=== PATIENT | female | born 1990 | race Caucasian/White ===

== ENCOUNTER 2018-02-05 08:35 | Emergency (ER) | payer OTHER ==
[2018-02-05] MEDS ORDERED: Sodium Chloride 0.9% 1,000 ML IV ONE (08:44)
[2018-02-05] MEDS ORDERED: Ondansetron 4 MG/2 ML SDV IVPUSH ONE (08:44)
--- NOTE | 2018-02-05 08:44 | EDM.PDOC ---
ED HPI GENERAL MEDICAL PROBLEM - General Chief Complaint: Gastrointestinal Problem Stated Complaint: DIARRHEA, VOMITING (19 WKS) Time Seen by Provider: 02/05/18 08:44 Source of Information: Reports: Patient - History of Present Illness INITIAL COMMENTS - FREE TEXT/NARRATIVE: HISTORY AND PHYSICAL: History of present illness: [Patient presents with nausea and vomiting over the last several days last episode of vomiting 7 AM today she is 19-2/7 weeks by dates and followed by OB a [facility]. Recommended she come in for evaluation patient is much improved after 1 L normal saline bolus and Zofran No current fever nausea vomiting diarrhea constipation chest pain shortness breath headache dizziness or palpitation no bowel or urine symptoms No low back pain vaginal bleeding discharge or fluid leakage no cramping ] Review of systems: As per history of present illness and below otherwise all systems reviewed and negative. Past medical history: As per history of present illness and as reviewed below otherwise noncontributory. Surgical history: As per history of present illness and as reviewed below otherwise noncontributory. Social history: No reported history of drug or alcohol abuse. Family history: As per history of present illness and as reviewed below otherwise noncontributory. Physical exam: HEENT: Atraumatic, normocephalic, pupils reactive, negative for conjunctival pallor or scleral icterus, mucous membranes moist, throat clear, neck supple, nontender, trachea midline. Lungs: Clear to auscultation, breath sounds equal bilaterally, chest nontender. Heart: S1S2, regular, negative for clicks, rubs, or JVD. Abdomen: Soft, nondistended, nontender. Negative for masses or hepatosplenomegaly. Negative for costovertebral tenderness. System with dates Pelvis: Stable nontender. Genitourinary: Deferred. Rectal: Deferred. Extremities: Atraumatic, negative for cords or calf pain. Neurovascular unremarkable. Neuro: Awake, alert, oriented. Cranial nerves II through XII unremarkable. Cerebellum unremarkable. Motor and sensory unremarkable throughout. Exam nonfocal. Diagnostics: [CBC CMP UA ] Therapeutics: [Normal saline 1 L Zofran 8 mg IV ]Zofran No. 30 no refill Impression: Nausea in [-improved to resolved 19 weeks 2/7 EDC by dates 09/28/18 heart tones 147 A positive ] Definitive disposition and diagnosis as appropriate pending reevaluation and review of above. - Related Data Allergies Allergy/AdvReac Type Severity Reaction Status Date / Time No Known Allergies Allergy Verified 02/05/18 08:49 Home Meds: Home Meds . [No Known Home Meds] 02/05/18 [History] Past Medical History - Past Health History Medical/Surgical History: Denies Medical/Surgical History Cardiovascular History: Reports: Stents [employer] ST[employer]ER History: Reports: Hematologic History: Reports: None (denies any personal or family history of bleeding or clotting problems) - Past Surgical History HEENT Surgical History: Reports: None Cardiovascular Surgical History: Reports: None Social & Family History - Family History Cardiac: Reports: Hypertension, Stent Endocrine/Metabolic: Reports: Diabetes, type II Oncologic: Reports: Pancreatic, Prostate - Tobacco Use Smoking Status *Q: Never Smoker - Caffeine Use Caffeine Use: Reports: Coffee - Alcohol Use Days Per Week of Alcohol Use: 0 Number of Drinks Per Day: 1 Total Drinks Per Week: 0 - Recreational Drug Use Recreational Drug Use: No ED ROS GENERAL - Review of Systems Review Of Systems: See Below ED EXAM, GENERAL - Physical Exam Exam: See Below Course - Vital Signs Last Recorded V/S: Last Vital Signs Temp 97.3 F 02/05/18 09:51 Pulse 85 02/05/18 09:51 Resp 20 02/05/18 09:51 BP 133/72 02/05/18 09:51 Pulse Ox 100 02/05/18 09:51 - Orders/Labs/Meds Orders: Active Orders 24 hr Category Date Time Status UA W/MICROSCOPIC [URIN] Stat Lab 02/05/18 09:40 Ordered Labs: Laboratory Tests 02/05/18 02/05/18 02/05/18 Range/Units 08:50 08:50 09:40 WBC 11.67 H (4.0-11.0) K/uL RBC 4.64 (4.30-5.90) M/uL Hgb 13.4 (12.0-16.0) g/dL Hct 39.0 (36.0-46.0) % MCV 84.1 (80.0-98.0) fL MCH 28.9 (27.0-32.0) pg MCHC 34.4 (31.0-37.0) g/dL RDW Std Deviation 40.6 (28.0-62.0) fl RDW Coeff of Manisha 14 (11.0-15.0) % Plt Count 220 (150-400) K/uL MPV 10.70 (7.40-12.00) fL Neut % (Auto) 82.9 H (48.0-80.0) % Lymph % (Auto) 9.1 L (16.0-40.0) % [place] % (Auto) 7.5 (0.0-15.0) % Eos % (Auto) 0.4 (0.0-7.0) % Baso % (Auto) 0.1 (0.0-1.5) % Neut # (Auto) 9.7 H (1.4-5.7) K/uL Lymph # (Auto) 1.1 (0.6-2.4) K/uL Clayton # (Auto) 0.9 H (0.0-0.8) K/uL Eos # (Auto) 0.1 (0.0-0.7) K/uL Baso # (Auto) 0.0 (0.0-0.1) K/uL Nucleated RBC % 0.0 /100WBC Nucleated RBCs # 0 K/uL Sodium 137 (136-145) mmol/L Potassium 3.3 L (3.5-5.1) mmol/L Chloride 104 (98-107) mmol/L Carbon Dioxide 20.3 L (21.0-32.0) mmol/L BUN 7 (7.0-18.0) mg/dL Creatinine 0.7 (0.6-1.0) mg/dL Est Cr Clr Drug Dosing 125.04 mL/min Estimated GFR (MDRD) > 60.0 ml/min Glucose 122 H (74-106) mg/dL Calcium 8.8 (8.5-10.1) mg/dL Total Bilirubin 0.3 (0.2-1.0) mg/dL AST 13 L (15-37) IU/L ALT 13 L (14-63) IU/L Alkaline Phosphatase 61 (46-116) U/L Total Protein 7.4 (6.4-8.2) g/dL Albumin 3.3 L (3.4-5.0) g/dL Globulin 4.1 H (2.0-3.5) g/dL Albumin/Globulin Ratio 0.8 L (1.3-2.8) Urine Color YELLOW Urine Appearance CLEAR Urine pH 5.5 (5.0-8.0) Ur Specific [place] 1.025 (1.001-1.035) Urine Protein TRACE (NEGATIVE) mg/dL Urine Glucose (UA) NEGATIVE (NEGATIVE) mg/dL Urine Ketones TRACE H (NEGATIVE) mg/dL Urine Occult Blood NEGATIVE (NEGATIVE) Urine Nitrite NEGATIVE (NEGATIVE) Urine Bilirubin SMALL H (NEGATIVE) Urine Ictotest NEGATIVE Urine Urobilinogen 1.0 (<2.0) EU/dL Ur Leukocyte Esterase NEGATIVE (NEGATIVE) Urine RBC 0-1 (0-2/HPF) Urine WBC 1-3 (0-5/HPF) Ur Epithelial Cells FEW (NONE-FEW) Urine Bacteria FEW (NEGATIVE) Urine Mucus LIGHT (NONE-MOD) Meds: Medications Discontinued Medications Generic Name Dose Route Start Last Admin Trade Name Freq PRN Reason Stop Dose Admin Sodium Chloride 1,000 mls @ 999 mls/hr 02/05/18 08:44 02/05/18 09:01 Normal Saline IV 02/05/18 09:44 999 mls/hr STAT ONE Administration Ondansetron HCl 8 mg 02/05/18 08:44 02/05/18 09:01 Zofran IVPUSH 02/05/18 08:45 8 mg ONETIME ONE Administration Departure - Departure Time of Disposition: 10:33 Disposition: Home, Self-Care 01 Condition: Good Clinical Impression: Nausea/vomiting in - Discharge Information Referrals: PCP,None [Primary Care Provider] - Forms: ED Department Discharge Additional Instructions: The following information is given to patients seen in the emergency department who are being discharged to home. This information is to outline your options for follow-up care. We provide all patients seen in our emergency department with a follow-up referral. The need for follow-up, as well as the timing and circumstances, are variable depending upon the specifics of your emergency department visit. If you don't have a primary care physician on staff, we will provide you with a referral. We always advise you to contact your personal physician following an emergency department visit to inform them of the circumstance of the visit and for follow-up with them and/or the need for any referrals to a consulting specialist. The emergency department will also refer you to a specialist when appropriate. This referral assures that you have the opportunity for follow-up care with a specialist. All of these measure are taken in an effort to provide you with optimal care, which includes your follow-up. Under all circumstances we always encourage you to contact your private physician who remains a resource for coordinating your care. When calling for follow-up care, please make the office aware that this follow-up is from your recent emergency room visit. If for any reason you are refused follow-up, please contact the [facility] emergency department at and asked to speak to the emergency department charge nurse. - My Orders Last 24 Hours: My Active Orders 02/05/18 09:40 UA W/MICROSCOPIC [URIN] Stat - Assessment/Plan Last 24 Hours: My Active Orders 02/05/18 09:40 UA W/MICROSCOPIC [URIN] Stat
[2018-02-05 10:19] LABS: CHLORIDE,CL 104 mmol/L (98-107); SODIUM,NA 137 mmol/L (136-145)
[2018-02-05 10:53] VITALS: BP 125/63
== END 2018-02-05 10:47 | disposition home or self-care (01) ==
LOC: MW.ED 08:35
DX: O21.9 Vomiting of pregnancy, unspecified (principal); Z3A.19 19 weeks gestation of pregnancy
CPT/HCPCS: 36415; 80053; 81001; 85025; 96361; 96374; 99284; J2405; J7040

== ENCOUNTER 2018-06-24 11:53 | Inpatient (IN) | payer OTHER ==
[2018-06-24] MEDS ORDERED: Tranexamic Acid 1,000 MG in Sodium Chloride 0.9% 100 ML IV PRN (13:21)
[2018-06-24] MEDS ORDERED: Misoprostol 200 MCG Tab PO PRN (13:21)
[2018-06-24] MEDS ORDERED: Nalbuphine 10 MG/1 ML Vial IVPUSH PRN (13:21)
[2018-06-24] MEDS ORDERED: Lidocaine 1% 50 ML MDV INJECT PRN (13:21)
[2018-06-24] MEDS ORDERED: Methylergonovine 0.2 MG/1 ML Amp IM PRN (13:21)
[2018-06-24] MEDS ORDERED: Sodium Chloride 0.9% 2.5 ML Syringe FLUSH PRN (13:21)
[2018-06-24] MEDS ORDERED: Water For Irrigation,Sterile 1,000 ML Container IRR PRN (13:21)
[2018-06-24] MEDS ORDERED: Sodium Chloride 0.9% 10 ML Syringe FLUSH PRN (13:21)
[2018-06-24] MEDS ORDERED: Carboprost Tromethamine 250 MCG/1 ML Amp IM PRN (13:21)
[2018-06-24] MEDS ORDERED: Butorphanol 1 MG/ML SDV IVPUSH PRN (13:21)
[2018-06-24] MEDS ORDERED: Lactated Ringers 1,000 ML IV SCH (13:30)
[2018-06-24] MEDS ORDERED: Oxytocin/0.9 % Sodium Chloride 30 UNIT/500 ML BAG IV SCH (13:30)
--- NOTE | 2018-06-24 14:13 | PCM.PREANE ---
Preanesthetic Assessment - Anesthesia/Transfusion/Family Hx Anesthesia History: Prior Anesthesia Without Reaction Family History of Anesthesia Reaction: No Transfusion History: No Prior Transfusion(s) - Review of Systems General: No Symptoms Pulmonary: No Symptoms Cardiovascular: No Symptoms Gastrointestinal: No Symptoms Neurological: No Symptoms Other: Reports: None - Physical Assessment Height: 5 ft 9 in Weight: 106.141 kg ASA Class: 2 Mental Status: Alert & Oriented x3 Airway Class: Mallampati = 2 Dentition: Reports: Normal Dentition Thyro-Mental Finger Breadths: 3 Mouth Opening Finger Breadths: 3 ROM/Head Extension: Full Lungs: Clear to Auscultation, Normal Respiratory Effort Cardiovascular: Regular Rate, Regular Rhythm - Lab Values: Laboratory Last Values WBC 15.05 K/uL (4.0-11.0) H 06/24/18 13:38 RBC 4.43 M/uL (4.30-5.90) 06/24/18 13:38 Hgb 12.5 g/dL (12.0-16.0) 06/24/18 13:38 Hct 36.6 % (36.0-46.0) 06/24/18 13:38 MCV 82.6 fL (80.0-98.0) 06/24/18 13:38 MCH 28.2 pg (27.0-32.0) 06/24/18 13:38 MCHC 34.2 g/dL (31.0-37.0) 06/24/18 13:38 RDW Std Deviation 42.0 fl (28.0-62.0) 06/24/18 13:38 RDW Coeff of Manisha 14 % (11.0-15.0) 06/24/18 13:38 Plt Count 209 K/uL (150-400) 06/24/18 13:38 MPV 10.50 fL (7.40-12.00) 06/24/18 13:38 Nucleated RBC % 0.0 /100WBC 06/24/18 13:38 Nucleated RBCs # 0 K/uL 06/24/18 13:38 - Allergies Allergies/Adverse Reactions: Allergies Allergy/AdvReac Type Severity Reaction Status Date / Time No Known Allergies Allergy Verified 02/05/18 08:49 - Acknowledgements Anesthesia Type Planned: Epidural Pt an Appropriate Candidate for the Planned Anesthesia: Yes Alternatives and Risks of Anesthesia Discussed w Pt/Guardian: Yes Pt/Guardian Understands and Agrees with Anesthesia Plan: Yes PreAnesthesia Questionnaire - Past Health History Medical/Surgical History: Denies Medical/Surgical History HEENT History: Reports: None Cardiovascular History: Reports: Stents Respiratory History: Reports: None Gastrointestinal History: Reports: GERD Genitourinary History: Reports: None [employer]ER History: Reports: : 2 Para: 1 LMP (Approximate): Musculoskeletal History: Reports: None Neurological History: Reports: None Psychiatric History: Reports: None Endocrine/Metabolic History: Reports: Obesity/BMI 30+ Hematologic History: Reports: None (denies any personal or family history of bleeding or clotting problems) Immunologic History: Reports: None Oncologic (Cancer) History: Reports: None Dermatologic History: Reports: None - Infectious Disease History Infectious Disease History: Reports: None - Past Surgical History HEENT Surgical History: Reports: Other (See Below) ([place] teeth extraction) Cardiovascular Surgical History: Reports: None - HOME MEDS Home Medications: Home Meds . [No Known Home Meds] 02/05/18 [History] - CURRENT (IN HOUSE) MEDS Current Meds: Current Medications Butorphanol Tartrate (Stadol) 1 mg IVPUSH Q1H PRN PRN Reason: Pain Carboprost Tromethamine (Hemabate Ds) 250 mcg IM ASDIRECTED PRN PRN Reason: Post Hemorrhage Lactated Ringer's (Ringers, Lactated) 1,000 mls @ 150 mls/hr IV ASDIRECTED CARYL Oxytocin/Sodium Chloride (Oxytocin 30 Unit/500 Ml-Ns) 30 unit in 500 mls @ 500 mls/hr IV TITRATE CARYL Tranexamic Acid 1,000 mg/ (Sodium Chloride) 110 mls @ 660 mls/hr IV ONETIME PRN PRN Reason: Bleeding Lidocaine HCl (Xylocaine 1%) 50 ml INJECT ONETIME PRN PRN Reason: Laceration repair Methylergonovine Maleate (Methergine) 0.2 mg IM ASDIRECTED PRN PRN Reason: Post Hemorrhage Misoprostol (Cytotec) 200 mcg PO ONETIME PRN PRN Reason: Post Hemorrhage Nalbuphine HCl (Nubain) 10 mg IVPUSH Q1H PRN PRN Reason: Pain (severe 7-10) Sodium Chloride (Saline Flush) 10 ml FLUSH ASDIRECTED PRN PRN Reason: Keep Vein Open Sodium Chloride (Saline Flush) 2.5 ml FLUSH ASDIRECTED PRN PRN Reason: Keep Vein Open Sterile Water (Sterile Water For Irrigation) 1,000 ml IRR ASDIRECTED PRN PRN Reason: delivery
--- NOTE | 2018-06-24 19:57 | PCM.DEL ---
L & D Note - General Info Date of Service: 06/24/18 Mother's Due Date: 06/28/18 - Delivery Note Labor: Spontaneous Delivery Outcome: Livebirth Infant Delivery Method: Spontaneous Vaginal Delivery-Single Presentation: Right Occiput Anterior (PALMIRA) Nuchal Cord: None Anesthesia Type: Epidural Amniotic Fluid Description: Clear Laceration: None Placenta: Intact Estimated Blood Loss: 200 Resuscitation Needed: Yes Score 1 min: 9 Score 5 min: 9 Delivery Comments (Free Text/Narrative):: Live male 9/9 weight 3470g @ 717pm - General Info Date of Service: 06/24/18 - Patient Data Weight - Most Recent: 106.141 kg Lab Results Last 24 Hours: Laboratory Results - last 24 hr 06/24/18 06/24/18 Range/Units 13:38 13:38 WBC 15.05 H (4.0-11.0) K/uL RBC 4.43 (4.30-5.90) M/uL Hgb 12.5 (12.0-16.0) g/dL Hct 36.6 (36.0-46.0) % MCV 82.6 (80.0-98.0) fL MCH 28.2 (27.0-32.0) pg MCHC 34.2 (31.0-37.0) g/dL RDW Std Deviation 42.0 (28.0-62.0) fl RDW Coeff of Manisha 14 (11.0-15.0) % Plt Count 209 (150-400) K/uL MPV 10.50 (7.40-12.00) fL Nucleated RBC % 0.0 /100WBC Nucleated RBCs # 0 K/uL Blood Type A POSITIVE Antibody Screen NEGATIVE Med Orders - Current: Current Medications Butorphanol Tartrate (Stadol) 1 mg IVPUSH Q1H PRN PRN Reason: Pain Carboprost Tromethamine (Hemabate Ds) 250 mcg IM ASDIRECTED PRN PRN Reason: Post Hemorrhage Lactated Ringer's (Ringers, Lactated) 1,000 mls @ 150 mls/hr IV ASDIRECTED CARYL Oxytocin/Sodium Chloride (Oxytocin 30 Unit/500 Ml-Ns) 30 unit in 500 mls @ 500 mls/hr IV TITRATE CARYL Tranexamic Acid 1,000 mg/ (Sodium Chloride) 110 mls @ 660 mls/hr IV ONETIME PRN PRN Reason: Bleeding Lidocaine HCl (Xylocaine 1%) 50 ml INJECT ONETIME PRN PRN Reason: Laceration repair Methylergonovine Maleate (Methergine) 0.2 mg IM ASDIRECTED PRN PRN Reason: Post Hemorrhage Misoprostol (Cytotec) 200 mcg PO ONETIME PRN PRN Reason: Post Hemorrhage Nalbuphine HCl (Nubain) 10 mg IVPUSH Q1H PRN PRN Reason: Pain (severe 7-10) Sodium Chloride (Saline Flush) 10 ml FLUSH ASDIRECTED PRN PRN Reason: Keep Vein Open Sodium Chloride (Saline Flush) 2.5 ml FLUSH ASDIRECTED PRN PRN Reason: Keep Vein Open Sterile Water (Sterile Water For Irrigation) 1,000 ml IRR ASDIRECTED PRN PRN Reason: delivery Last Admin: 06/24/18 19:15 Dose: 1,000 ml Discontinued Medications Fentanyl/Bupivacaine HCl (Rkihtapb-Ladyr-Fw 2 Mcg/Ml-0.125%) Confirm Administered Dose 100 mls @ as directed EP .STK-MED ONE Stop: 06/24/18 14:06 - Problem List & Annotations (1) Vaginal delivery SNOMED Code(s): 907068240 Code(s): O80 - ENCOUNTER FOR FULL-TERM UNCOMPLICATED DELIVERY Status: Acute Current Visit: No - Problem List Review Problem List Initiated/Reviewed/Updated: Yes - My Orders Last 24 Hours: My Active Orders 06/24/18 13:21 Heart Tones [RC] CONTINUOUS Non Stress Test [RC] PER UNIT ROUTINE May Shower [RC] ASDIRECTED Notify Provider [RC] PRN Up ad Mala [RC] ASDIRECTED Vaginal Exam [RC] PRN Vital Signs [RC] PER UNIT ROUTINE Butorphanol [Stadol] 1 mg IVPUSH Q1H PRN Carboprost Tromethamine [Hemabate DS] 250 mcg IM ASDIRECTED PRN Lidocaine 1% [Xylocaine 1%] 50 ml INJECT ONETIME PRN Methylergonovine [Methergine] 0.2 mg IM ASDIRECTED PRN Nalbuphine [Nubain] 10 mg IVPUSH Q1H PRN Sodium Chloride 0.9% [Saline Flush] 10 ml FLUSH ASDIRECTED PRN Sodium Chloride 0.9% [Saline Flush] 2.5 ml FLUSH ASDIRECTED PRN Tranexamic Acid [Cyklokapron] 1,000 mg Sodium Chloride 0.9% [Normal Saline] 100 ml IV ONETIME Water For Irrigation,Sterile [Sterile Water for Irrigation] 1,000 ml IRR ASDIRECTED PRN miSOPROStol [Cytotec] 200 mcg PO ONETIME PRN Scalp Electrode [WOMSER] Per Unit Routine Peripheral IV Insertion Adult [OM.PC] Routine Resuscitation Status Routine 06/24/18 13:25 Admission Status [Patient Status] [ADT] Routine 06/24/18 13:30 Lactated Ringers [Ringers, Lactated] 1,000 ml IV ASDIRECTED Oxytocin/0.9 % Sodium Chloride [Oxytocin 30 Unit/500 ML-NS] 30 unit in 500 ml IV TITRATE
[2018-06-24] MEDS ORDERED: Docusate Sodium 100 MG Cap PO PRN (20:22)
[2018-06-24] MEDS ORDERED: oxyCODONE 5 MG Tab PO PRN (20:22)
[2018-06-24] MEDS ORDERED: Benzocaine/Menthol 20%-0.5% Spray 78 GM Cannister TOP PRN (20:22)
[2018-06-24] MEDS ORDERED: Acetaminophen 500 MG Tab PO PRN ×2 (20:22)
[2018-06-24] MEDS ORDERED: Bisacodyl 10 MG Supp RECTAL PRN (20:22)
[2018-06-24] MEDS ORDERED: Lanolin 100% Cream 7 GM Tube TOP PRN (20:22)
[2018-06-24] MEDS ORDERED: Ibuprofen 400 MG Tab PO PRN (20:22)
[2018-06-24] MEDS ORDERED: Witch Hazel Medicated Pads 40/Jar TOP PRN (20:22)
[2018-06-24] MEDS ORDERED: Benzocaine/Menthol 20%-0.5% Spray 78 GM Cannister ONE (20:26)
[2018-06-24] MEDS ORDERED: Witch Hazel Medicated Pads 40/Jar TOP ONE (20:26)
[2018-06-25] MEDS: Ibuprofen 800 MG Tab PO PRN ×3 (00:13→17:36)
--- NOTE | 2018-06-25 08:11 | PCM.PNPP ---
- General Info Date of Service: 06/25/18 Admission Dx/Problem (Free Text): 28yo P2 s/p PPD1 Subjective Update: patient seen at bedside , she denies any complains , she is ambulating , voiding , , Minimal lochia noted Functional Status: Reports: Pain Controlled, Tolerating Diet, Ambulating, Urinating - Review of Systems General: Reports: No Symptoms HEENT: Reports: No Symptoms Pulmonary: Reports: No Symptoms Cardiovascular: Reports: No Symptoms Gastrointestinal: Reports: No Symptoms Genitourinary: Reports: No Symptoms Musculoskeletal: Reports: No Symptoms Skin: Reports: No Symptoms Neurological: Reports: No Symptoms Psychiatric: Reports: No Symptoms - General Info Date of Service: 06/25/18 - Patient Data Vital Signs - Most Recent: Last Vital Signs Temp 36.7 C 06/25/18 04:00 Pulse 69 06/25/18 08:00 Resp 14 06/25/18 08:00 BP 112/68 06/25/18 08:00 Pulse Ox 98 06/25/18 08:00 Weight - Most Recent: 106.141 kg I&O - Last 24 Hours: Intake & Output 06/24/18 06/25/18 06/25/18 22:59 06:59 14:59 Intake Total 1000 Balance 1000 Lab Results - Last 24 Hours: Laboratory Results - last 24 hr 06/24/18 06/24/18 06/25/18 Range/Units 13:38 13:38 05:25 WBC 15.05 H (4.0-11.0) K/uL RBC 4.43 (4.30-5.90) M/uL Hgb 12.5 11.6 L (12.0-16.0) g/dL Hct 36.6 33.9 L (36.0-46.0) % MCV 82.6 (80.0-98.0) fL MCH 28.2 (27.0-32.0) pg MCHC 34.2 (31.0-37.0) g/dL RDW Std Deviation 42.0 (28.0-62.0) fl RDW Coeff of Manisha 14 (11.0-15.0) % Plt Count 209 (150-400) K/uL MPV 10.50 (7.40-12.00) fL Nucleated RBC % 0.0 /100WBC Nucleated RBCs # 0 K/uL Blood Type A POSITIVE Antibody Screen NEGATIVE Med Orders - Current: Current Medications Acetaminophen (Tylenol Extra Strength) 500 mg PO Q4H PRN PRN Reason: Pain Acetaminophen (Tylenol Extra Strength) 1,000 mg PO Q4H PRN PRN Reason: Pain Benzocaine/Menthol (Dermoplast Pain Relief 20%-0.5% [place]) 78 gm TOP ASDIRECTED PRN PRN Reason: Perineal Comfort Measure Last Admin: 06/24/18 20:41 Dose: 1 canister Bisacodyl (Dulcolax) 10 mg RECTAL ONETIME PRN PRN Reason: Constipation Butorphanol Tartrate (Stadol) 1 mg IVPUSH Q1H PRN PRN Reason: Pain Carboprost Tromethamine (Hemabate Ds) 250 mcg IM ASDIRECTED PRN PRN Reason: Post Hemorrhage Docusate Sodium (Colace) 100 mg PO BID PRN PRN Reason: Constipation Last Admin: 06/24/18 20:38 Dose: 100 mg Emollient Ointment (Lansinoh Hpa) 0 gm TOP ASDIRECTED PRN PRN Reason: Sore Nipples Lactated Ringer's (Ringers, Lactated) 1,000 mls @ 150 mls/hr IV ASDIRECTED CARYL Oxytocin/Sodium Chloride (Oxytocin 30 Unit/500 Ml-Ns) 30 unit in 500 mls @ 500 mls/hr IV TITRATE CARYL Last Admin: 06/24/18 19:18 Dose: 500 mls/hr Tranexamic Acid 1,000 mg/ (Sodium Chloride) 110 mls @ 660 mls/hr IV ONETIME PRN PRN Reason: Bleeding Ibuprofen (Motrin) 400 mg PO Q4H PRN PRN Reason: Pain Ibuprofen (Motrin) 800 mg PO Q6H PRN PRN Reason: Pain Last Admin: 06/25/18 00:13 Dose: 800 mg Lidocaine HCl (Xylocaine 1%) 50 ml INJECT ONETIME PRN PRN Reason: Laceration repair Methylergonovine Maleate (Methergine) 0.2 mg IM ASDIRECTED PRN PRN Reason: Post Hemorrhage Misoprostol (Cytotec) 200 mcg PO ONETIME PRN PRN Reason: Post Hemorrhage Nalbuphine HCl (Nubain) 10 mg IVPUSH Q1H PRN PRN Reason: Pain (severe 7-10) Oxycodone HCl (Oxycodone) 5 mg PO Q2H PRN PRN Reason: Pain Sodium Chloride (Saline Flush) 10 ml FLUSH ASDIRECTED PRN PRN Reason: Keep Vein Open Sodium Chloride (Saline Flush) 2.5 ml FLUSH ASDIRECTED PRN PRN Reason: Keep Vein Open Sterile Water (Sterile Water For Irrigation) 1,000 ml IRR ASDIRECTED PRN PRN Reason: delivery Last Admin: 06/24/18 19:15 Dose: 1,000 ml Witch Sherlyn (Tucks) 1 pad TOP ASDIRECTED PRN PRN Reason: comfort care Last Admin: 06/24/18 20:38 Dose: 1 tub Discontinued Medications Benzocaine/Menthol (Dermoplast Pain Relief 20%-0.5% [facility]) Confirm Administered Dose 78 gm .ROUTE .STK-MED ONE Stop: 06/24/18 20:27 Last Admin: 06/25/18 07:11 Dose: Not Given Fentanyl/Bupivacaine HCl (Ljximqcx-Iemzz-Lv 2 Mcg/Ml-0.125%) Confirm Administered Dose 100 mls @ as directed EP .STK-MED ONE Stop: 06/24/18 14:06 Last Admin: 06/25/18 07:11 Dose: Not Given Witch Sherlyn (Tucks) Confirm Administered Dose 1 pad TOP .STK-MED ONE Stop: 06/24/18 20:27 Last Admin: 06/25/18 07:12 Dose: Not Given - Interaction Support Person: - Recovery Exam Fundal Tone: Firm Fundal Level: 1 Fingerbreadths Below Umbilicus Fundal Placement: Midline Lochia Amount: Scant Lochia Color: Rubra/Red Perineum Description: Intact, Minimal Bruising/Swelling Episiotomy/Laceration: Not Approximated Bladder Status: Voiding Urinary Elimination: Voided - Exam General: Alert, Oriented HEENT: Pupils Equal Neck: Supple Lungs: Clear to Auscultation Cardiovascular: Regular Rate, Regular Rhythm GI/Abdominal Exam: Normal Bowel Sounds Extremities: Normal Inspection, Normal Range of Motion Neurological: No New Focal Deficit Psy/Mental Status: Alert - Problem List & Annotations (1) Vaginal delivery SNOMED Code(s): 333400099 Code(s): O80 - ENCOUNTER FOR FULL-TERM UNCOMPLICATED DELIVERY Status: Acute Current Visit: Yes - Problem List Review Problem List Initiated/Reviewed/Updated: Yes - My Orders Last 24 Hours: My Active Orders 06/24/18 13:21 Heart Tones [RC] CONTINUOUS May Shower [RC] ASDIRECTED Notify Provider [RC] PRN Up ad Mala [RC] ASDIRECTED Vital Signs [RC] PER UNIT ROUTINE Butorphanol [Stadol] 1 mg IVPUSH Q1H PRN Carboprost Tromethamine [Hemabate DS] 250 mcg IM ASDIRECTED PRN Lidocaine 1% [Xylocaine 1%] 50 ml INJECT ONETIME PRN Methylergonovine [Methergine] 0.2 mg IM ASDIRECTED PRN Nalbuphine [Nubain] 10 mg IVPUSH Q1H PRN Sodium Chloride 0.9% [Saline Flush] 10 ml FLUSH ASDIRECTED PRN Sodium Chloride 0.9% [Saline Flush] 2.5 ml FLUSH ASDIRECTED PRN Tranexamic Acid [Cyklokapron] 1,000 mg Sodium Chloride 0.9% [Normal Saline] 100 ml IV ONETIME Water For Irrigation,Sterile [Sterile Water for Irrigation] 1,000 ml IRR ASDIRECTED PRN miSOPROStol [Cytotec] 200 mcg PO ONETIME PRN Scalp Electrode [WOMSER] Per Unit Routine Peripheral IV Insertion Adult [OM.PC] Routine 06/24/18 13:25 Admission Status [Patient Status] [ADT] Routine 06/24/18 13:30 Lactated Ringers [Ringers, Lactated] 1,000 ml IV ASDIRECTED Oxytocin/0.9 % Sodium Chloride [Oxytocin 30 Unit/500 ML-NS] 30 unit in 500 ml IV TITRATE 06/24/18 20:22 Patient Status [ADT] Routine May Shower [RC] ASDIRECTED Up ad Mala [RC] ASDIRECTED Vital Signs [RC] PER UNIT ROUTINE Acetaminophen [Tylenol Extra Strength] 1,000 mg PO Q4H PRN Acetaminophen [Tylenol Extra Strength] 500 mg PO Q4H PRN Benzocaine/Menthol [Dermoplast Pain Relief 20%-0.5% [facility]] 78 gm TOP ASDIRECTED PRN Bisacodyl [Dulcolax] 10 mg RECTAL ONETIME PRN Docusate Sodium [Colace] 100 mg PO BID PRN Ibuprofen [Motrin] 400 mg PO Q4H PRN Ibuprofen [Motrin] 800 mg PO Q6H PRN Lanolin [Lansinoh HPA] See Dose Instructions TOP ASDIRECTED PRN Witch Sherlyn [Tucks] 1 pad TOP ASDIRECTED PRN oxyCODONE 5 mg PO Q2H PRN Assess Lochia [WOMSER] Per Unit Routine Assess Uterine Involution [WOMSER] Per Unit Routine Peripheral IV Discontinue [OM.PC] Routine Resuscitation Status Routine 06/25/18 Breakfast Regular Diet [DIET] - Assessment Assessment:: 28yo P2 s/p , Normal lochia , Breastdeeding , no complains - Plan Plan:: Routine Discharge home today
--- NOTE | 2018-06-25 14:37 | OR ---
SURGEON: MAGDA WYATT DATE OF PROCEDURE: PREOPERATIVE DIAGNOSIS: This 28-year-old 2, para 1-0-0-1 at 39 weeks 3 days comes in now with contractions, in early labor. POSTOPERATIVE DIAGNOSIS: This 28-year-old 2, para 1-0-0-1 at 39 weeks 3 days comes in now with contractions, in early labor. PROCEDURE: Normal spontaneous vaginal delivery. ESTIMATED BLOOD LOSS: 300. FINDINGS: Live female delivered at 1917 hours. score was 9 and 9. Weight is 3470 g. Three-vessel cord noted. HISTORY: The patient is a 28-year-old G2, P1-0-0-1 at 39 weeks 3 days low risk patient who came in early labor. The patient was requesting an epidural, she got an epidural. She was examined and she was 6, 60, -2. Membranes were ruptured after the epidural. She had a normal labor, progressed and became fully dilated. When the patient was fully dilated, she was encouraged to push. PROCEDURE IN DETAIL: With the patient's good pushing effort, she delivered the head in the [place] position followed by the anterior and posterior shoulder, then the body of the infant was delivered. The infant was placed on maternal abdomen. Delayed cord clamping was observed. The cord was then clamped. The cord blood gases were obtained. The placenta was delivered via controlled cord traction. The perineum was inspected and noted to be intact, bimanual massage. Normal lochia was noted. The patient was left in Labor and Delivery suite in stable condition. All instrument and pad counts were correct x2. JACQUELINE / SHAYNA /[id number]
--- NOTE | 2018-06-25 15:50 | PCM48HPAN ---
Post Anesthesia Note - EVALUATION WITHIN 48HRS OF ANESTHETIC Vital Signs in Normal Range: Yes Patient Participated in Evaluation: Yes Respiratory Function Stable: Yes Airway Patent: Yes Cardiovascular Function Stable: Yes Hydration Status Stable: Yes Pain Control Satisfactory: Yes Nausea and Vomiting Control Satisfactory: Yes Mental Status Recovered: Yes Resp Rate: 14
[2018-06-25 19:58] VITALS: BP 123/81
== END 2018-06-25 21:20 | disposition home or self-care (01) | DRG 775 ==
LOC: MW.OBCHECK 11:53 → MW.OB 11:54 → MW.OBCHECK 13:21 → MW.OB 16:29 → OBSVTOIN 19:17
PROVIDERS: ADMIT Obstetrics & Gynecology; ATTEND Obstetrics & Gynecology
PROC: 10E0XZZ Delivery of Products of Conception, External Approach (ICD-10-PCS; principal; 2018-06-24)
PROC: 10907ZC Drainage of Amniotic Fluid, Therapeutic from Products of Conception, Via Natural or Artificial Opening (ICD-10-PCS; 2018-06-24)
PROC: 00HU33Z Insertion of Infusion Device into Spinal Canal, Percutaneous Approach (ICD-10-PCS; 2018-06-24)
DX: O80 Encounter for full-term uncomplicated delivery (principal); Z3A.39 39 weeks gestation of pregnancy; Z37.0 Single live birth
CPT/HCPCS: 36415; 51702; 59025; 59409; 85014; 85018; 85027; 86850; 86900; 86901; A9270-GY; J2590

== ENCOUNTER 2021-02-01 07:07 | Inpatient (IN) | payer OTHER ==
[2021-02-01] MEDS ORDERED: Ampicillin 2 GM in Sodium Chloride 0.9% 100 ML IV ONE (07:13)
[2021-02-01] MEDS ORDERED: Butorphanol 1 MG/ML SDV IVPUSH PRN (07:13)
[2021-02-01] MEDS ORDERED: Nalbuphine 10 MG/1 ML Vial IVPUSH PRN (07:13)
[2021-02-01] MEDS ORDERED: Lidocaine 1% 50 ML MDV INJECT PRN (07:13)
[2021-02-01] MEDS ORDERED: Methylergonovine 0.2 MG/1 ML Amp IM PRN (07:13)
[2021-02-01] MEDS ORDERED: Ondansetron 4 MG/2 ML SDV IVPUSH PRN (07:13)
[2021-02-01] MEDS ORDERED: Carboprost Tromethamine 250 MCG/1 ML Amp IM PRN (07:13)
[2021-02-01] MEDS ORDERED: Sodium Chloride 0.9% 10 ML Syringe FLUSH PRN (07:13)
[2021-02-01] MEDS ORDERED: Misoprostol 200 MCG Tab PO PRN (07:13)
[2021-02-01] MEDS ORDERED: Sodium Chloride 0.9% 10 ML SDV IV PRN (07:13)
[2021-02-01] MEDS ORDERED: Water For Irrigation,Sterile 1,000 ML Container IRR PRN (07:13)
[2021-02-01] MEDS ORDERED: Sodium Chloride 0.9% 2.5 ML Syringe FLUSH PRN (07:13)
[2021-02-01] MEDS ORDERED: Tranexamic Acid 1,000 MG in Sodium Chloride 0.9% 100 ML IV PRN (07:13)
[2021-02-01] MEDS ORDERED: Oxytocin/0.9 % Sodium Chloride 30 UNIT/500 ML BAG IV SCH (07:15)
[2021-02-01] MEDS: Lactated Ringers 1,000 ML IV SCH ×2 (07:20→08:21)
[2021-02-01] MEDS ORDERED: Ropivacaine HCl/PF 100 ML ONE (07:37)
[2021-02-01] MEDS ORDERED: fentaNYL 100 MCG/2 ML SDV ONE (07:37)
--- NOTE | 2021-02-01 08:05 | PCM.PREANE ---
Preanesthetic Assessment - Anesthesia/Transfusion/Family Hx Anesthesia History: Prior Anesthesia Without Reaction Family History of Anesthesia Reaction: No Transfusion History: No Prior Transfusion(s) - Physical Assessment NPO Status Date: 02/01/21 NPO Status Time: 06:00 ASA Class: 2 - Lab Values: Laboratory Last Values WBC 13.51 K/uL (4.0-11.0) H 02/01/21 07:15 RBC 4.47 M/uL (4.30-5.90) 02/01/21 07:15 Hgb 12.8 g/dL (12.0-16.0) 02/01/21 07:15 Hct 37.6 % (36.0-46.0) 02/01/21 07:15 MCV 84.1 fL (80.0-98.0) 02/01/21 07:15 MCH 28.6 pg (27.0-32.0) 02/01/21 07:15 MCHC 34.0 g/dL (31.0-37.0) 02/01/21 07:15 RDW Std Deviation 42.3 fl (28.0-62.0) 02/01/21 07:15 RDW Coeff of Manisha 14 % (11.0-15.0) 02/01/21 07:15 Plt Count 200 K/uL (150-400) 02/01/21 07:15 MPV 11.10 fL (7.40-12.00) 02/01/21 07:15 Nucleated RBC % 0.0 /100WBC 02/01/21 07:15 Nucleated RBCs # 0 K/uL 02/01/21 07:15 - Allergies Allergies/Adverse Reactions: Allergies Allergy/AdvReac Type Severity Reaction Status Date / Time No Known Allergies Allergy Verified 02/05/18 08:49 - Acknowledgements Anesthesia Type Planned: Epidural Pt an Appropriate Candidate for the Planned Anesthesia: Yes Alternatives and Risks of Anesthesia Discussed w Pt/Guardian: Yes Pt/Guardian Understands and Agrees with Anesthesia Plan: Yes PreAnesthesia Questionnaire - Past Health History Medical/Surgical History: Denies Medical/Surgical History HEENT History: Reports: None Cardiovascular History: Reports: Stents Respiratory History: Reports: None Gastrointestinal History: Reports: GERD Genitourinary History: Reports: None ORAL THERAPIST History: Reports: Musculoskeletal History: Reports: None Other Musculoskeletal History: closed reduction left humerus Neurological History: Reports: None Psychiatric History: Reports: None Endocrine/Metabolic History: Reports: Obesity/BMI 30+ Hematologic History: Reports: None (denies any personal or family history of bleeding or clotting problems) Immunologic History: Reports: None Oncologic (Cancer) History: Reports: None Dermatologic History: Reports: None - Infectious Disease History Infectious Disease History: Reports: None - Past Surgical History HEENT Surgical History: Reports: Other (See Below) ([place] teeth extraction) Cardiovascular Surgical History: Reports: None - HOME MEDS Home Medications: Home Meds . [No Known Home Meds] 02/05/18 [History] - CURRENT (IN HOUSE) MEDS Current Meds: Current Medications Butorphanol Tartrate (Butorphanol 1 Mg/Ml Sdv) 1 mg IVPUSH Q1H PRN PRN Reason: Pain Carboprost Tromethamine (Carboprost Tromethamine 250 Mcg/1 Ml Amp) 250 mcg IM ASDIRECTED PRN PRN Reason: Post Hemorrhage Oxytocin/Sodium Chloride (Oxytocin 30 Unit/500 Ml-Ns) 30 unit in 500 mls @ 999 mls/hr IV TITRATE [facility] Tranexamic Acid 1,000 mg/ (Sodium Chloride) 110 mls @ 660 mls/hr IV ONETIME PRN PRN Reason: Bleeding Lactated Ringer's (Ringers, Lactated) 1,000 mls @ 150 mls/hr IV ASDIRECTED CARYL Lidocaine HCl (Lidocaine 1% 50 Ml Mdv) 50 ml INJECT ONETIME PRN PRN Reason: Laceration repair Methylergonovine Maleate (Methylergonovine 0.2 Mg/1 Ml Amp) 0.2 mg IM ASDIRECTED PRN PRN Reason: Post Hemorrhage Misoprostol (Misoprostol 200 Mcg Tab) 200 mcg PO ONETIME PRN PRN Reason: Post Hemorrhage Nalbuphine HCl (Nalbuphine 10 Mg/1 Ml Vial) 10 mg IVPUSH Q1H PRN PRN Reason: Pain (severe 7-10) Ondansetron HCl (Ondansetron 4 Mg/2 Ml Sdv) 4 mg IVPUSH Q6H PRN PRN Reason: Nausea/Vomiting Sodium Chloride (Sodium Chloride 0.9% 10 Ml Syringe) 10 ml FLUSH ASDIRECTED PRN PRN Reason: Keep Vein Open Sodium Chloride (Sodium Chloride 0.9% 2.5 Ml Syringe) 2.5 ml FLUSH ASDIRECTED PRN PRN Reason: Keep Vein Open Sodium Chloride (Sodium Chloride 0.9% 10 Ml Sdv) 10 ml IV ASDIRECTED PRN PRN Reason: IV Use Sterile Water (Water For Irrigation,Sterile 1,000 Ml Container) 1,000 ml IRR ASDIRECTED PRN PRN Reason: delivery Discontinued Medications Fentanyl (Fentanyl 100 Mcg/2 Ml Sdv) Confirm Administered Dose 100 mcg .ROUTE .STK-MED ONE Stop: 02/01/21 07:38 Ampicillin Sodium 2 gm/ Sodium (Chloride) 100 mls @ 200 mls/hr IV ONETIME ONE Stop: 02/01/21 07:42 Ropivacaine (Naropin 0.2%) Confirm Administered Dose 100 mls @ as directed .Jabier HAMMONDS .STK-MED ONE Stop: 02/01/21 07:38
--- NOTE | 2021-02-01 08:08 | PCM.PRNOTE ---
- Free Text/Narrative Note: Anes Note Patient requests epidural for L&D. Sitting position. Level L3-L4 midline approach. Sterile technique. Chloraprep scrub to lumbar area. Sterile fenestrated drape applied. Epidural space easily achieved single attempt using ERIC technique. ERIC at 3 cm. Cath threaded 5 cm with ease. Cath secured at skin using sterile clear adhesive dressing. 0751 Test 3 cc 1.5% lido with epi negative. 0755 LOad 10 cc 0.2% ropivicaine with 1 mcg cc fentanyl in slow divided doses. 0804 Pump started with 90 cc same solution. Rate is 8 cc h with 6 cc q 20 min prn bolus. Marian well. Time with patient [id number] Trevor Yusuf MEDICAL RECORD ADMINISTRATOR
[2021-02-01] MEDS ORDERED: Sodium Chloride 0.9% 50 ML ONE (11:34)
[2021-02-01] MEDS ORDERED: Ampicillin 1 GM Vial ONE (11:34)
[2021-02-01] MEDS ORDERED: Acetaminophen 500 MG Tab ONE (13:03)
[2021-02-01] MEDS ORDERED: Ibuprofen 800 MG Tab PO PRN (17:19)
[2021-02-01] MEDS ORDERED: Bisacodyl 10 MG Supp RECTAL PRN (17:19)
[2021-02-01] MEDS ORDERED: Benzocaine/Menthol 20%-0.5% Spray 78 GM Cannister TOP PRN (17:19)
[2021-02-01] MEDS ORDERED: Witch Hazel Medicated Pads 40/Jar TOP PRN (17:19)
[2021-02-01] MEDS ORDERED: Ibuprofen 400 MG Tab PO PRN (17:19)
[2021-02-01] MEDS ORDERED: Acetaminophen 500 MG Tab PO PRN ×2 (17:19)
[2021-02-01] MEDS ORDERED: Docusate Sodium 100 MG Cap PO PRN (17:19)
[2021-02-01] MEDS ORDERED: Lanolin 100% Cream 7 GM Tube TOP PRN (17:19)
[2021-02-01] MEDS ORDERED: oxyCODONE 5 MG Tab PO PRN (17:19)
--- NOTE | 2021-02-01 17:29 | PCM.DEL ---
L & D Note - General Info Date of Service: 02/01/21 - Delivery Note Delivery Outcome: Livebirth Infant Delivery Method: Spontaneous Vaginal Delivery-Single Presentation: Left Occiput Anterior (ELEANOR) Nuchal Cord: None Anesthesia Type: Epidural Amniotic Fluid Description: Clear Episiotomy Type: None Laceration: None Placenta: Intact Cord: 3 Vessels Estimated Blood Loss: 200 Resuscitation Needed: No Score 1 min: 9 Score 5 min: 10 Second Stage Interventions: Reports: Pushing Effectively Delivery Comments (Free Text/Narrative):: Live male delivered at 1154am , 9/10 weight 3940g - General Info Date of Service: 02/01/21 - Patient Data Weight - Most Recent: 105.233 kg Lab Results Last 24 Hours: Laboratory Results - last 24 hr 02/01/21 02/01/21 02/01/21 Range/Units 07:15 07:15 07:25 WBC 13.51 H (4.0-11.0) K/uL RBC 4.47 (4.30-5.90) M/uL Hgb 12.8 (12.0-16.0) g/dL Hct 37.6 (36.0-46.0) % MCV 84.1 (80.0-98.0) fL MCH 28.6 (27.0-32.0) pg MCHC 34.0 (31.0-37.0) g/dL RDW Std Deviation 42.3 (28.0-62.0) fl RDW Coeff of Manisha 14 (11.0-15.0) % Plt Count 200 (150-400) K/uL MPV 11.10 (7.40-12.00) fL Nucleated RBC % 0.0 /100WBC Nucleated RBCs # 0 K/uL SARS-CoV-2 RNA (RC) NEGATIVE (NEGATIVE) Blood Type A POSITIVE Antibody Screen NEGATIVE Med Orders - Current: Current Medications Acetaminophen (Acetaminophen 500 Mg Tab) 500 mg PO Q4H PRN PRN Reason: Pain Acetaminophen (Acetaminophen 500 Mg Tab) 1,000 mg PO Q4H PRN PRN Reason: Pain Benzocaine/Menthol (Benzocaine/Menthol 20%-0.5% St[place] 78 Gm Cannister) 78 gm TOP ASDIRECTED PRN PRN Reason: Perineal Comfort Measure Bisacodyl (Bisacodyl 10 Mg Supp) 10 mg RECTAL ONETIME PRN PRN Reason: Constipation Butorphanol Tartrate (Butorphanol 1 Mg/Ml Sdv) 1 mg IVPUSH Q1H PRN PRN Reason: Pain Carboprost Tromethamine (Carboprost Tromethamine 250 Mcg/1 Ml Amp) 250 mcg IM ASDIRECTED PRN PRN Reason: Post Hemorrhage Docusate Sodium (Docusate Sodium 100 Mg Cap) 100 mg PO BID PRN PRN Reason: Constipation Emollient Ointment (Lanolin 100% Cream 7 Gm Tube) 0 gm TOP ASDIRECTED PRN PRN Reason: Sore Nipples Oxytocin/Sodium Chloride (Oxytocin 30 Unit/500 Ml-Ns) 30 unit in 500 mls @ 999 mls/hr IV TITRATE [facility] Tranexamic Acid 1,000 mg/ (Sodium Chloride) 110 mls @ 660 mls/hr IV ONETIME PRN PRN Reason: Bleeding Lactated Ringer's (Ringers, Lactated) 1,000 mls @ 150 mls/hr IV ASDIRECTED [facility] Last Admin: 02/01/21 08:21 Dose: 999 mls/hr Documented by: Ibuprofen (Ibuprofen 400 Mg Tab) 400 mg PO Q4H PRN PRN Reason: Pain Ibuprofen (Ibuprofen 800 Mg Tab) 800 mg PO Q6H PRN PRN Reason: Pain Lidocaine HCl (Lidocaine 1% 50 Ml Mdv) 50 ml INJECT ONETIME PRN PRN Reason: Laceration repair Methylergonovine Maleate (Methylergonovine 0.2 Mg/1 Ml Amp) 0.2 mg IM ASDIRECTED PRN PRN Reason: Post Hemorrhage Misoprostol (Misoprostol 200 Mcg Tab) 200 mcg PO ONETIME PRN PRN Reason: Post Hemorrhage Nalbuphine HCl (Nalbuphine 10 Mg/1 Ml Vial) 10 mg IVPUSH Q1H PRN PRN Reason: Pain (severe 7-10) Ondansetron HCl (Ondansetron 4 Mg/2 Ml Sdv) 4 mg IVPUSH Q6H PRN PRN Reason: Nausea/Vomiting Oxycodone HCl (Oxycodone 5 Mg Tab) 5 mg PO Q2H PRN PRN Reason: Pain Sodium Chloride (Sodium Chloride 0.9% 10 Ml Syringe) 10 ml FLUSH ASDIRECTED PRN PRN Reason: Keep Vein Open Sodium Chloride (Sodium Chloride 0.9% 2.5 Ml Syringe) 2.5 ml FLUSH ASDIRECTED PRN PRN Reason: Keep Vein Open Sodium Chloride (Sodium Chloride 0.9% 10 Ml Sdv) 10 ml IV ASDIRECTED PRN PRN Reason: IV Use Sterile Water (Water For Irrigation,Sterile 1,000 Ml Container) 1,000 ml IRR ASDIRECTED PRN PRN Reason: delivery Witch Sherlyn (Witch Sherlyn Medicated Pads 40/Jar) 1 pad TOP ASDIRECTED PRN PRN Reason: comfort care Discontinued Medications Acetaminophen (Acetaminophen 500 Mg Tab) Confirm Administered Dose 1,000 mg .ROUTE .STK-MED ONE Stop: 02/01/21 13:04 Ampicillin Sodium (Ampicillin 1 Gm Vial) Confirm Administered Dose 1 gm .ROUTE .STK-MED ONE Stop: 02/01/21 11:35 Fentanyl (Fentanyl 100 Mcg/2 Ml Sdv) Confirm Administered Dose 100 mcg .ROUTE .STK-MED ONE Stop: 02/01/21 07:38 Ampicillin Sodium 2 gm/ Sodium (Chloride) 100 mls @ 200 mls/hr IV ONETIME ONE Stop: 02/01/21 07:42 Last Admin: 02/01/21 07:38 Dose: 200 mls/hr Documented by: Ropivacaine (Naropin 0.2%) Confirm Administered Dose 100 mls @ as directed .ROUTE .STK-MED ONE Stop: 02/01/21 07:38 Sodium Chloride (Normal Saline) Confirm Administered Dose 50 mls @ as directed .ROUTE .STK-MED ONE Stop: 02/01/21 11:35 - Problem List & Annotations (1) Vaginal delivery SNOMED Code(s): 194151202 Code(s): O80 - ENCOUNTER FOR FULL-TERM UNCOMPLICATED DELIVERY Status: Acute Current Visit: No - Problem List Review Problem List Initiated/Reviewed/Updated: No - My Orders Last 24 Hours: My Active Orders 02/01/21 17:19 Acetaminophen [Tylenol Extra Strength] 1,000 mg PO Q4H PRN Acetaminophen [Tylenol Extra Strength] 500 mg PO Q4H PRN Benzocaine/Menthol [Dermoplast Pain Relief 20%-0.5% Stella] 78 gm TOP ASDIRECTED PRN Docusate Sodium [Colace] 100 mg PO BID PRN Ibuprofen [Motrin] 400 mg PO Q4H PRN Ibuprofen [Motrin] 800 mg PO Q6H PRN Lanolin [Lansinoh HPA] See Dose Instructions TOP ASDIRECTED PRN bisacodyL [Dulcolax] 10 mg RECTAL ONETIME PRN oxyCODONE 5 mg PO Q2H PRN witch Sherlyn [Tucks] 1 pad TOP ASDIRECTED PRN Resuscitation Status Routine 02/01/21 17:20 Patient Status [ADT] Routine May Shower [RC] ASDIRECTED Up ad Mala [RC] ASDIRECTED Vital Signs [RC] PER UNIT ROUTINE Assess Lochia [WOMSER] Per Unit Routine Assess Uterine Involution [WOMSER] Per Unit Routine Peripheral IV Discontinue [OM.PC] Routine 02/02/21 05:11 HEMOGLOBIN/HEMATOCRIT,HH [HEME] Timed
--- NOTE | 2021-02-02 06:51 | PCM48HPAN ---
Post Anesthesia Note - EVALUATION WITHIN 48HRS OF ANESTHETIC Vital Signs in Normal Range: Yes Patient Participated in Evaluation: Yes Respiratory Function Stable: Yes Airway Patent: Yes Cardiovascular Function Stable: Yes Hydration Status Stable: Yes Pain Control Satisfactory: Yes Nausea and Vomiting Control Satisfactory: Yes Mental Status Recovered: Yes Vital Signs: Last Vital Signs Temp 36.7 C 02/02/21 04:50 Pulse 67 02/02/21 04:50 Resp 18 02/02/21 04:50 BP 128/85 02/02/21 04:50 Pulse Ox 96 02/02/21 04:50
[2021-02-02 08:38] VITALS: BP 122/80; PULSE 85
--- NOTE | 2021-02-02 09:57 | PCM.PNPP ---
- General Info Date of Service: 02/02/21 Subjective Update: Patient seen at bedside , she is doing very well , and bottle feeding, Minimal lochia Functional Status: Reports: Pain Controlled, Tolerating Diet, Ambulating, Urinating - Review of Systems General: Reports: No Symptoms HEENT: Reports: No Symptoms Pulmonary: Reports: No Symptoms Cardiovascular: Reports: No Symptoms Gastrointestinal: Reports: No Symptoms Genitourinary: Reports: No Symptoms Musculoskeletal: Reports: No Symptoms Skin: Reports: No Symptoms Neurological: Reports: No Symptoms Psychiatric: Reports: No Symptoms - General Info Date of Service: 02/02/21 - Patient Data Vital Signs - Most Recent: Last Vital Signs Temp 36.3 C 02/02/21 08:37 Pulse 85 02/02/21 08:37 Resp 18 02/02/21 08:37 BP 122/80 02/02/21 08:37 Pulse Ox 96 02/02/21 08:37 Weight - Most Recent: 105.233 kg Lab Results - Last 24 Hours: Laboratory Results - last 24 hr 02/01/21 02/02/21 Range/Units 11:53 05:11 Hgb 11.5 L (12.0-16.0) g/dL Hct 34.4 L (36.0-46.0) % Cord ABG pH 7.476 H (7.18-7.38) Cord ABG Base Excess 0 H (-10--2) Cord VBG pH 7.368 (7.25-7.45) Cord VBG Base Excess -3 (-10--2) Med Orders - Current: Current Medications Acetaminophen (Acetaminophen 500 Mg Tab) 500 mg PO Q4H PRN PRN Reason: Pain Acetaminophen (Acetaminophen 500 Mg Tab) 1,000 mg PO Q4H PRN PRN Reason: Pain Last Admin: 02/01/21 22:00 Dose: 1,000 mg Documented by: Benzocaine/Menthol (Benzocaine/Menthol 20%-0.5% [place] 78 Gm Cannister) 78 gm TOP ASDIRECTED PRN PRN Reason: Perineal Comfort Measure Bisacodyl (Bisacodyl 10 Mg Supp) 10 mg RECTAL ONETIME PRN PRN Reason: Constipation Butorphanol Tartrate (Butorphanol 1 Mg/Ml Sdv) 1 mg IVPUSH Q1H PRN PRN Reason: Pain Carboprost Tromethamine (Carboprost Tromethamine 250 Mcg/1 Ml Amp) 250 mcg IM ASDIRECTED PRN PRN Reason: Post Hemorrhage Docusate Sodium (Docusate Sodium 100 Mg Cap) 100 mg PO BID PRN PRN Reason: Constipation Emollient Ointment (Lanolin 100% Cream 7 Gm Tube) 0 gm TOP ASDIRECTED PRN PRN Reason: Sore Nipples Oxytocin/Sodium Chloride (Oxytocin 30 Unit/500 Ml-Ns) 30 unit in 500 mls @ 999 mls/hr IV TITRATE [facility] Tranexamic Acid 1,000 mg/ (Sodium Chloride) 110 mls @ 660 mls/hr IV ONETIME PRN PRN Reason: Bleeding Lactated Ringer's (Ringers, Lactated) 1,000 mls @ 150 mls/hr IV ASDIRECTED CARYL Last Admin: 02/01/21 08:21 Dose: 999 mls/hr Documented by: Ibuprofen (Ibuprofen 400 Mg Tab) 400 mg PO Q4H PRN PRN Reason: Pain Ibuprofen (Ibuprofen 800 Mg Tab) 800 mg PO Q6H PRN PRN Reason: Pain Last Admin: 02/01/21 19:44 Dose: 800 mg Documented by: Lidocaine HCl (Lidocaine 1% 50 Ml Mdv) 50 ml INJECT ONETIME PRN PRN Reason: Laceration repair Methylergonovine Maleate (Methylergonovine 0.2 Mg/1 Ml Amp) 0.2 mg IM ASDIRECTED PRN PRN Reason: Post Hemorrhage Misoprostol (Misoprostol 200 Mcg Tab) 200 mcg PO ONETIME PRN PRN Reason: Post Hemorrhage Nalbuphine HCl (Nalbuphine 10 Mg/1 Ml Vial) 10 mg IVPUSH Q1H PRN PRN Reason: Pain (severe 7-10) Ondansetron HCl (Ondansetron 4 Mg/2 Ml Sdv) 4 mg IVPUSH Q6H PRN PRN Reason: Nausea/Vomiting Oxycodone HCl (Oxycodone 5 Mg Tab) 5 mg PO Q2H PRN PRN Reason: Pain Sodium Chloride (Sodium Chloride 0.9% 10 Ml Syringe) 10 ml FLUSH ASDIRECTED PRN PRN Reason: Keep Vein Open Sodium Chloride (Sodium Chloride 0.9% 2.5 Ml Syringe) 2.5 ml FLUSH ASDIRECTED PRN PRN Reason: Keep Vein Open Sodium Chloride (Sodium Chloride 0.9% 10 Ml Sdv) 10 ml IV ASDIRECTED PRN PRN Reason: IV Use Sterile Water (Water For Irrigation,Sterile 1,000 Ml Container) 1,000 ml IRR ASDIRECTED PRN PRN Reason: delivery Witch Bladimir (Witch Bladimir Medicated Pads 40/Jar) 1 pad TOP ASDIRECTED PRN PRN Reason: comfort care Discontinued Medications Acetaminophen (Acetaminophen 500 Mg Tab) Confirm Administered Dose 1,000 mg . ROUTE .STK-MED ONE Stop: 02/01/21 13:04 Ampicillin Sodium (Ampicillin 1 Gm Vial) Confirm Administered Dose 1 gm .ROUTE .STK-MED ONE Stop: 02/01/21 11:35 Fentanyl (Fentanyl 100 Mcg/2 Ml Sdv) Confirm Administered Dose 100 mcg .ROUTE .STK-MED ONE Stop: 02/01/21 07:38 Ampicillin Sodium 2 gm/ Sodium (Chloride) 100 mls @ 200 mls/hr IV ONETIME ONE Stop: 02/01/21 07:42 Last Admin: 02/01/21 07:38 Dose: 200 mls/hr Documented by: Ropivacaine (Naropin 0.2%) Confirm Administered Dose 100 mls @ as directed .ROUTE .STK-MED ONE Stop: 02/01/21 07:38 Sodium Chloride (Normal Saline) Confirm Administered Dose 50 mls @ as directed .ROUTE .STK-MED ONE Stop: 02/01/21 11:35 - Interaction Support Person: - Recovery Exam Fundal Tone: Firm Fundal Level: 1 Fingerbreadths Below Umbilicus Fundal Placement: Midline Lochia Amount: Scant Lochia Color: Rubra/Red Perineum Description: Intact, Minimal Bruising/Swelling Episiotomy/Laceration: None Bladder Status: Voiding - Exam General: Alert HEENT: Pupils Equal Neck: Supple Lungs: Clear to Auscultation, Normal Respiratory Effort Cardiovascular: Regular Rate, Regular Rhythm GI/Abdominal Exam: Normal Bowel Sounds Extremities: Normal Inspection - Problem List & Annotations (1) Vaginal delivery SNOMED Code(s): 116359657 Code(s): O80 - ENCOUNTER FOR FULL-TERM UNCOMPLICATED DELIVERY Status: Acute Current Visit: No - Problem List Review Problem List Initiated/Reviewed/Updated: Yes - My Orders Last 24 Hours: My Active Orders 02/01/21 17:19 Acetaminophen [Tylenol Extra Strength] 1,000 mg PO Q4H PRN Acetaminophen [Tylenol Extra Strength] 500 mg PO Q4H PRN Benzocaine/Menthol [Dermoplast Pain Relief 20%-0.5% [place]] 78 gm TOP ASDIRECTED PRN Docusate Sodium [Colace] 100 mg PO BID PRN Ibuprofen [Motrin] 400 mg PO Q4H PRN Ibuprofen [Motrin] 800 mg PO Q6H PRN Lanolin [Lansinoh HPA] See Dose Instructions TOP ASDIRECTED PRN bisacodyL [Dulcolax] 10 mg RECTAL ONETIME PRN oxyCODONE 5 mg PO Q2H PRN witch Bladimir [Tucks] 1 pad TOP ASDIRECTED PRN Resuscitation Status Routine 02/01/21 17:20 Patient Status [ADT] Routine May Shower [RC] ASDIRECTED Up ad Mala [RC] ASDIRECTED Assess Lochia [WOMSER] Per Unit Routine Assess Uterine Involution [WOMSER] Per Unit Routine Peripheral IV Discontinue [OM.PC] Routine - Assessment Assessment:: 30 yo P3 s/p PPD1 , stable - Plan Plan:: Routine Pain control as needed Discharge home today
--- NOTE | 2021-02-02 12:42 | OR ---
SURGEON: MAGDA WYATT DATE OF PROCEDURE: 02/01/2021 PREOPERATIVE DIAGNOSIS: 30-year-old, G3, P2-0-0-2, at 38 weeks 6 days; group B streptococcus positive; admitted in early labor. POSTOPERATIVE DIAGNOSIS: 30-year-old, G3, P2-0-0-2, at 38 weeks 6 days; group B streptococcus positive; admitted in early labor. PROCEDURE: Normal spontaneous vaginal delivery. ESTIMATED BLOOD LOSS: 200. IV FLUIDS: Pitocin running. ANESTHESIA: Epidural. BRIEF HISTORY ABOUT THE PATIENT: She is a 30-year-old, G3, P2-0-0-2 who came at 38 weeks 6 days, GBS positive, came in complaining of contractions. She was about 4 to 5 cm dilated. She received GBS prophylaxis with ampicillin. PROCEDURE IN DETAIL: She then had a normal labor course, and became fully dilated. When she was fully dilated after the second dose of ampicillin, she was ruptured. Then, she was encouraged to push and requested dad to assist with delivery, so with good pushing effort, the head was delivered followed by the anterior and posterior shoulder. The body of the was delivered. was placed on the maternal abdomen. The nose and mouth were suctioned. Delayed cord clamping was observed. Cord blood gases were obtained. Placenta was delivered by massage of the uterine fundus. The perineum was inspected, noted to be normal. The patient tolerated the procedure well. All instrument and pad counts were correct x2. The patient was left in Labor and Delivery room in stable condition. JACQUELINE / SHAYNA /[id number] MTDD
== END 2021-02-02 15:25 | disposition home or self-care (01) | DRG 807 ==
LOC: MW.OB 07:07 → OBSVTOIN 11:54 → MW.OB 16:47
PROVIDERS: ADMIT Obstetrics & Gynecology; ATTEND Obstetrics & Gynecology
PROC: 10E0XZZ Delivery of Products of Conception, External Approach (ICD-10-PCS; principal; 2021-02-01)
PROC: 3E0R3BZ Introduction of Anesthetic Agent into Spinal Canal, Percutaneous Approach (ICD-10-PCS; 2021-02-01)
PROC: 00HU33Z Insertion of Infusion Device into Spinal Canal, Percutaneous Approach (ICD-10-PCS; 2021-02-01)
DX: O99.824 Streptococcus B carrier state complicating childbirth (principal); Z37.0 Single live birth; Z3A.38 38 weeks gestation of pregnancy; Z20.822 Contact with and (suspected) exposure to COVID-19
CPT/HCPCS: 01967; 36415; 59025; 59409; 82803; 85014; 85018; 85027; 86592; 86850; 86900; 86901; A9270-GY; J0290; J2795; J3010; J7120; U0002